=== PATIENT | female | born 1955 | race Two or more races ===

== ENCOUNTER 2021-05-02 07:30 | Inpatient (IN) | payer MEDICAID ==
[2021-04-24 11:11] LABS: BASOPHILS % (AUTO) 0.4 % (0-1); EOSINOPHILS # (AUTO) 0.1 X10'3 (0-0.9); EOSINOPHILS % (AUTO) 3.2 % (0-6); LYMPHOCYTES # (AUTO) 1.1 X10'3 (1.1-4.8); LYMPHOCYTES % (AUTO) 25.3 % (21-51); MEAN CORPUSCULAR HEMOGLOBIN 31.7 PG (27.0-31.0); MEAN CORPUSCULAR HGB CONC 34.3 g/dL (33.0-36.5); MEAN CORPUSCULAR VOLUME 92.5 FL (78-98); MEAN PLATELET VOLUME 7.3 FL (7.4-10.4); MONOCYTES # (AUTO) 0.4 X10'3 (0-0.9); MONOCYTES % (AUTO) 9.8 % (2-12); NEUTROPHILS # (AUTO) 2.7 X10'3 (1.8-7.7); NEUTROPHILS % (AUTO) 61.3 % (42-75); PRE OP HEMATOCRIT 42.2 % (35.0-45.0); PRE OP HEMOGLOBIN 14.5 g/dL (12.0-16.0); PRE OP PLATELET COUNT 218 X10'3 (140-440); RED BLOOD COUNT 4.56 X10'6 (4.20-5.60); RED CELL DISTRIBUTION WIDTH 13.4 % (11.5-14.5)
[2021-04-24 11:47] LABS: ALBUMIN 4.3 G/DL (3.4-5.0); ALBUMIN/GLOBULIN RATIO 1.3 (1.1-1.5); ALKALINE PHOSPHATASE 85 IU/L (46-116); BLOOD UREA NITROGEN 14 MG/DL (7-18); BUN/CREATININE RATIO 24.6 (6.6-38.0); CALCIUM 8.8 MG/DL (8.5-10.1); CHLORIDE 106 MMOL/L (99-107); CREATININE 0.57 MG/DL (0.40-0.90); PRE OP ALT 33 U/L (30-65); PRE OP ANION GAP 10 (8-16); PRE OP AST 15 U/L (10-37); PRE OP BILIRUB, TOTAL 0.3 MG/DL (0.0-1.0); PRE OP GLUCOSE 112 MG/DL (70-104); PRE OP POTASSIUM 3.6 MMOL/L (3.4-5.1); PRE OP SODIUM 144 MMOL/L (135-145); TOTAL CARBON DIOXIDE 27.8 MMOL/L (24-32); TOTAL PROTEIN 7.7 G/DL (6.4-8.2); eGFR > 90 ML/MIN
[~2021-05-02] VITALS: Ht 154.9 cm; Wt 108.0 kg
[~2021-05-02 07:30] MED LIST: AMLO5TAB16 PO; LOVA20TA2 PO; MELO-100 PO; PANT40TA54 PO
[2021-05-11] MEDS ORDERED: LISI1TAB53 PO (11:13)
[2021-05-12] VITALS (23 sets, daily range): BP systolic 110–151; BP diastolic 62–86
[2021-05-12] MEDS ORDERED: vancomycin 1,500 MG in NS 300ml IV soln IV ONE (05:30)
[2021-05-12] MEDS ORDERED: cefazolin/dext.iso 2gm/50ml IV ONE (05:30)
[2021-05-12] MEDS ORDERED: tranexamic acid 650mg tablet PO ONE (05:30)
[2021-05-12] MEDS ORDERED: famotidine 20mg tablet PO ONE (05:30)
[2021-05-12] MEDS ORDERED: DEXTROSE 5% IV ONE (08:35)
[2021-05-12] MEDS ORDERED: VANCOMYCIN IV ONE (08:35)
[2021-05-12] MEDS ORDERED: WATER IV ONE (08:35)
[2021-05-12] MEDS: ringers solution, lacted 1,000 ML IV SCH (08:36)
[2021-05-12] MEDS ORDERED: ketorolac trometh. 30mg/ml inj. ONE (11:46)
[2021-05-12] MEDS ORDERED: ROPIVAcaine 0.5% (5mg/ml) 30ml vial ONE ×2 (11:47→14:08)
[2021-05-12] MEDS ORDERED: morphine 4 MG/ML inj SYRINge IV PRN (12:10)
[2021-05-12] MEDS ORDERED: morphine 2 MG/ML inj. syringe IV PRN (12:10)
[2021-05-12] MEDS ORDERED: ondansetron/PF 4mg/2ml inj IV PRN ×2 (12:10→14:30)
[2021-05-12] MEDS ORDERED: fentaNYL/PF 50MCG/1 ML 2ML syringe ONE (12:10)
[2021-05-12] MEDS ORDERED: ringers solution, lacted 1,000 ML IV SCH (12:10)
[2021-05-12] MEDS ORDERED: MIDAZolam 1mg/ml 10ml vial ONE (12:10)
[2021-05-12] MEDS ORDERED: proCHLORperazine 10 MG/2 ml inj IV PRN (12:10)
[2021-05-12] MEDS ORDERED: meperidine/PF 25mg/ml syringe IV PRN ×3 (12:10)
[2021-05-12] MEDS ORDERED: ROPIVAcaine 0.2% (10 MG/5 ML) BOLUS INJECTION ADDCANAL PRN (13:45)
[2021-05-12] MEDS ORDERED: ROPIVAcaine 0.2%/PF PUMP/bolus 545 ML ADDCANAL SCH (13:45)
[2021-05-12] MEDS ORDERED: BUPIVAcaine/PF 7.5mg/ml (0.75%) 10ml vial ONE (14:08)
[2021-05-12] MEDS ORDERED: dexamethasone sod phosphate 4mg/ml inj. ONE (14:08)
[2021-05-12] MEDS ORDERED: acetaminophen 325mg tablet PO PRN (14:30)
[2021-05-12] MEDS ORDERED: bisacodyl 10mg suppository rectal RC PRN (14:30)
[2021-05-12] MEDS ORDERED: HYDROmorphone 1 mg/ml syringe IV PRN (14:30)
[2021-05-12] MEDS ORDERED: magnesium hydroxide 30ml (MOM) UD suspension PO PRN (14:30)
[2021-05-12] MEDS ORDERED: oxyCODONE IR 5mg (immed. release) tablet PO PRN ×2 (14:30)
[2021-05-12] MEDS ORDERED: HYDROmorphone inj. 0.5 MG/0.5 ML DISP.SYRIN IV PRN (14:30)
[2021-05-12] MEDS ORDERED: diphenhydrAMINE 25mg capsule PO PRN ×2 (14:30)
[2021-05-12] MEDS: potassium cl 20mEq in 1/2 NS 1,000 ML IV SCH (14:30)
--- NOTE | 2021-05-12 14:45 | NUR ---
Received from OR via BED, accompanied by Anesthesiologist and report given by Anesthesiologist. PATIENT WAKING UP, NO S/S OF PAIN, V/S WNL, SCD ON, 20G TO RUE, RIGHT KNEE WRAP CDI WITH COLD PACK AND SCD ON. ON Q AT 2ML/HR, F/C DRAINING CLEARYELLOW URINE
--- NOTE | 2021-05-12 15:45 | NUR ---
PATIENT A&OX4, DENIES PAIN, V/S WNL, SCD ON, 20G TO RUE, RIGHT KNEE WRAP CDI WITH COLD PACK AND SCD ON. ON Q AT 2ML/HR, F/C DRAINING CLEAR YELLOW URINE. TAKEN TO 348A WITH ALL BELONGINGS AND HOOKED UP TO MONITORS IN ROOM AND REPORT GIVEN TO RN WHO HAS TAKEN OVER PATIENT CARE.
[2021-05-12] MEDS: ceFAZolin/D5W- 1GM premix 50 ML IV SCH (16:54)
--- NOTE | 2021-05-12 18:28 | NUR ---
Gave repor to Christina PHELAN.
--- NOTE | 2021-05-12 18:29 | NUR ---
Patient in room [facility] 348. I have received report from ZHANE Betancur and had the opportunity to ask questions and assume patient care.
[2021-05-12] MEDS ORDERED: vancomycin/NS 1 GM ADD-VANTAGE 200 ML IV SCH (20:00)
[2021-05-12] MEDS ORDERED: atorvastatin 10mg tablet PO SCH (21:00)
[2021-05-12] MEDS ORDERED: sennosides 8.6mg tablet PO SCH (21:00)
[2021-05-12] MEDS: acetaminophen 325mg tablet PO SCH (21:43)
[2021-05-13] VITALS: BP_SYST 114; BP_SYST 124; BP_DIAS 65; BP_DIAS 68
[2021-05-13] MEDS: ceFAZolin/D5W- 1GM premix 50 ML IV SCH (00:37)
[2021-05-13] MEDS: potassium cl 20mEq in 1/2 NS 1,000 ML IV SCH ×2 (00:37→06:30)
[2021-05-13] MEDS: acetaminophen 325mg tablet PO SCH ×2 (02:08→07:31)
[2021-05-13 02:14] VITALS: BP 124/65
[2021-05-13 04:00] VITALS: BP 115/61
--- NOTE | 2021-05-13 05:53 | NUR ---
Hernández discontinued, per post up order, pt yet to void.
--- NOTE | 2021-05-13 06:36 | NUR ---
Problems reprioritized. Patient report given, questions answered & plan of care reviewed with ZHANE Reyes.
[2021-05-13 06:45] LABS: BASOPHILS % (AUTO) 0.1 % (0-1); EOSINOPHILS % (AUTO) 0 % (0-6); HEMOGLOBIN 11.8 g/dl (12.0-16.0); LYMPHOCYTES # (AUTO) 0.6 X10'3 (1.1-4.8); LYMPHOCYTES % (AUTO) 8.7 % (21-51); MEAN CORPUSCULAR HEMOGLOBIN 31.2 PG (27.0-31.0); MEAN CORPUSCULAR HGB CONC 33.7 g/dL (33.0-36.5); MEAN CORPUSCULAR VOLUME 92.7 FL (78-98); MEAN PLATELET VOLUME 8.3 FL (7.4-10.4); MONOCYTES # (AUTO) 0.4 X10'3 (0-0.9); MONOCYTES % (AUTO) 5.5 % (2-12); NEUTROPHILS # (AUTO) 6.1 X10'3 (1.8-7.7); NEUTROPHILS % (AUTO) 85.7 % (42-75); PLATELET COUNT 202 X10'3 (140-440); RED BLOOD COUNT 3.77 X10'6 (4.20-5.60); RED CELL DISTRIBUTION WIDTH 13.1 % (11.5-14.5); WHITE BLOOD COUNT 7.1 X10'3 (4.5-11.0)
[2021-05-13 07:12] LABS: ANION GAP 11 (8-16); CHLORIDE 104 MMOL/L (99-107); POTASSIUM 3.6 MMOL/L (3.5-5.1); SODIUM 141 MMOL/L (135-145); TOTAL CARBON DIOXIDE 25.8 MMOL/L (24-32)
[2021-05-13 08:00] VITALS: BP 121/71
[2021-05-13] MEDS ORDERED: pantoprazole 40mg Tablet.DR PO SCH (08:00)
[2021-05-13] MEDS ORDERED: MELOXICAM PO SCH (08:00)
[2021-05-13] MEDS ORDERED: HYDROchlorothiazide 25mg tablet PO SCH (08:00)
[2021-05-13] MEDS ORDERED: lisinopril 20mg tablet PO SCH (08:00)
[2021-05-13] MEDS ORDERED: amLODIPine 5mg tablet PO SCH (08:00)
[2021-05-13] MEDS ORDERED: aspirin 325mg tablet PO SCH (08:30)
[2021-05-13] MEDS: ringers solution, lacted 1,000 ML IV SCH (10:51)
[2021-05-13 12:00] VITALS: BP 113/55
[2021-05-14] MEDS ORDERED: acetaminophen 325mg tablet PO PRN (14:30)
== END 2021-05-13 13:18 | disposition home or self-care (01) | DRG 326 ==
LOC: PAS IN 05-12 07:43 → SUR 3N 05-12 15:50
PROVIDERS: ADMIT Orthopaedic Surgery; ATTEND Orthopaedic Surgery
PROC: 8E0YXBZ Computer Assisted Procedure of Lower Extremity (ICD-10-PCS; 2021-05-12)
PROC: 8E0Y0CZ Robotic Assisted Procedure of Lower Extremity, Open Approach (ICD-10-PCS; 2021-05-12)
PROC: 3E0T3BZ Introduction of Anesthetic Agent into Peripheral Nerves and Plexi, Percutaneous Approach (ICD-10-PCS; 2021-05-12)
PROC: 3E0T33Z Introduction of Anti-inflammatory into Peripheral Nerves and Plexi, Percutaneous Approach (ICD-10-PCS; 2021-05-12)
PROC: 0SRC0J9 Replacement of Right Knee Joint with Synthetic Substitute, Cemented, Open Approach (ICD-10-PCS; principal; 2021-05-12 12:07)
DX: M17.11 Unilateral primary osteoarthritis, right knee (principal); E78.00 Pure hypercholesterolemia, unspecified; I10 Essential (primary) hypertension; G89.4 Chronic pain syndrome; K21.9 Gastro-esophageal reflux disease without esophagitis; Z79.899 Other long term (current) drug therapy
CPT/HCPCS: 36415; 80051; 80053; 82948; 85025; 87081; 97110; 97116; 97162; 97530; A4215; A6449; A7000; C1713; C1758; C1776; G0378; J0690; J1100; J1885; J2250; J2795; J3010; J3370; J3480; J3490; J7060; J7120; U0003; U0005

== ENCOUNTER 2021-12-26 08:03 | Inpatient (IN) | payer MEDICAID ==
[2021-12-20 15:12] LABS: BASOPHILS # (AUTO) 0.1 X10'3 (0-0.2); BASOPHILS % (AUTO) 0.9 % (0-1); EOSINOPHILS # (AUTO) 0.1 X10'3 (0-0.9); EOSINOPHILS % (AUTO) 1.9 % (0-6); LYMPHOCYTES # (AUTO) 1.2 X10'3 (1.1-4.8); LYMPHOCYTES % (AUTO) 18.9 % (21-51); MEAN CORPUSCULAR HGB CONC 34.4 g/dL (33.0-36.5); MEAN CORPUSCULAR VOLUME 90.2 FL (78-98); MEAN PLATELET VOLUME 7.4 FL (7.4-10.4); MONOCYTES # (AUTO) 0.5 X10'3 (0-0.9); MONOCYTES % (AUTO) 7.8 % (2-12); NEUTROPHILS # (AUTO) 4.5 X10'3 (1.8-7.7); NEUTROPHILS % (AUTO) 70.5 % (42-75); PRE OP HEMATOCRIT 40.9 % (35.0-45.0); PRE OP HEMOGLOBIN 14.1 g/dL (12.0-16.0); PRE OP PLATELET COUNT 224 X10'3 (140-440); RED BLOOD COUNT 4.54 X10'6 (4.20-5.60); RED CELL DISTRIBUTION WIDTH 13.6 % (11.5-14.5)
[2021-12-20 15:25] LABS: ALBUMIN 4.2 G/DL (3.4-5.0); ALBUMIN/GLOBULIN RATIO 1.2 (1.1-1.5); ALKALINE PHOSPHATASE 84 IU/L (46-116); BLOOD UREA NITROGEN 15 MG/DL (7-18); BUN/CREATININE RATIO 25.4 (6.6-38.0); CALCIUM 9.3 MG/DL (8.5-10.1); CHLORIDE 99 MMOL/L (99-107); CREATININE 0.59 MG/DL (0.40-0.90); PRE OP ALT 29 U/L (30-65); PRE OP ANION GAP 11 (8-16); PRE OP AST 19 U/L (10-37); PRE OP BILIRUB, TOTAL 0.2 MG/DL (0.0-1.0); PRE OP GLUCOSE 124 MG/DL (70-104); PRE OP SODIUM 137 MMOL/L (135-145); TOTAL CARBON DIOXIDE 27.4 MMOL/L (24-32); TOTAL PROTEIN 7.8 G/DL (6.4-8.2); eGFR > 90 ML/MIN
[2021-12-20 15:27] LABS: PRE OP POTASSIUM 2.9 MMOL/L (3.4-5.1)
[~2021-12-26] VITALS: Ht 157.5 cm; Wt 110.7 kg
[2021-12-26] VITALS (16 sets, daily range): BP systolic 89–155; BP diastolic 52–95
[~2021-12-26 08:03] MED LIST changes: +LISI1TAB53 PO; +ceFAZolin inj. 2,000 MG in dextrose 5%-water 100 ML IV ONE; +famotidine 20mg tablet PO ONE; +ringers solution, lacted 1,000 ML IV SCH; +tranexamic acid 650mg tablet PO ONE; +vancomycin 1,500 MG in NS 300ml IV soln IV ONE
[2021-12-26] MEDS ORDERED: ketorolac trometh. 30mg/ml inj. ONE (09:33)
[2021-12-26] MEDS ORDERED: ROPIVAcaine 0.5% (5mg/ml) 30ml vial ONE ×3 (09:33→10:48)
[2021-12-26 09:35] LABS: ISTAT ANION GAP 11 (8-12); ISTAT BUN 8 mg/dL (7-18); ISTAT CL 98 mmol/L (99-107); ISTAT CREATININE 0.5 mg/dL (0.6-1.1); ISTAT GLUCOSE 119 mg/dL (70-104); ISTAT HGB 13.9 g/dl (12.0-16.0); ISTAT Hct 41 %PCV (35-45); ISTAT IONIZED CALCIUM 1.11 mmol/L (1.03-1.32); ISTAT K 3.9 mmol/L (3.5-5.1); ISTAT NA 138 mmol/L (135-145); ISTAT TOTAL CO2 29 mmol/L (24-32); ISTAT eGFR > 90 ML/MIN
--- NOTE | 2021-12-26 10:10 | NUR ---
PT WAS INSTRUCTED TO WATCH VIDEO AT PREOP BUT DUE TO LANGUAGE BARRIER SHE DID NOT WATCH. SOAP AND OINTMENT USED X 5 DAYS PREOP. BILAT PEDAL PULSES +3 AND MARKED ON PATIENT.
[2021-12-26] MEDS ORDERED: tetracaine 1% (10mg/ml) pres. free inj. ONE (10:43)
[2021-12-26] MEDS ORDERED: fentaNYL/PF 50MCG/1 ML 2ML syringe ONE (10:47)
[2021-12-26] MEDS ORDERED: MIDAZolam 1 MG/ML 5ML VIAL ONE (10:47)
[2021-12-26] MEDS ORDERED: morphine 4 MG/ML inj SYRINge IV PRN (12:15)
[2021-12-26] MEDS ORDERED: meperidine/PF 25mg/ml syringe IV PRN ×3 (12:15)
[2021-12-26] MEDS ORDERED: ringers solution, lacted 1,000 ML IV SCH (12:15)
[2021-12-26] MEDS ORDERED: ondansetron/PF 4mg/2ml inj IV PRN (12:15)
[2021-12-26] MEDS ORDERED: morphine 2 MG/ML inj. syringe IV PRN (12:15)
[2021-12-26] MEDS ORDERED: proCHLORperazine 10 MG/2 ml inj IV PRN (12:15)
[2021-12-26] MEDS ORDERED: propofol inj 20 ML IV ONE ×3 (12:47)
[2021-12-26] MEDS ORDERED: oxyCODONE IR 5mg (immed. release) tablet PO PRN ×2 (13:15)
[2021-12-26] MEDS ORDERED: bisacodyl 10mg suppository rectal RC PRN (13:15)
[2021-12-26] MEDS ORDERED: naloxone 0.4 mg/ml inj IV PRN (13:15)
[2021-12-26] MEDS ORDERED: acetaminophen 325mg tablet PO PRN (13:15)
[2021-12-26] MEDS ORDERED: diphenhydrAMINE 25mg capsule PO PRN ×2 (13:15)
[2021-12-26] MEDS ORDERED: pantoprazole 40mg Tablet.DR PO PRN (13:15)
[2021-12-26] MEDS ORDERED: HYDROmorphone inj. 0.5 MG/0.5 ML DISP.SYRIN IV PRN (13:15)
[2021-12-26] MEDS ORDERED: magnesium hydroxide 30ml (MOM) UD suspension PO PRN (13:15)
[2021-12-26] MEDS ORDERED: HYDROcodone/acetaminophen 10/325mg tab PO PRN (13:15)
[2021-12-26] MEDS ORDERED: HYDROmorphone 1 mg/ml syringe IV PRN (13:15)
--- NOTE | 2021-12-26 13:22 | NUR ---
Received from OR via BED, accompanied by Anesthesiologist and report given by BATSHEVA Anesthesiologist. PATIENT WAKING UP, DENIES PAIN, V/S WNL, SCD ON, 18G TO RIGHT AC, drsg to LEFT KNEE C/D/I with ICE POWDER PACK. CERNA CATHETER DRAINING WITH CLEAR YELLOW URINE. Addendum: 12/26/21 at 1353 by Kyle Salinas RN Amended: Links added. Addendum: 12/26/21 at 1415 by Kyle Salinas RN ALL CARE PLAN WERE TRANSLATED USING [employer] DEVICE. COSTUME DIRECTOR NAME: ADELE, ID: [id number].
[2021-12-26] MEDS: acetaminophen 325mg tablet PO SCH ×2 (14:00→20:00)
--- NOTE | 2021-12-26 14:12 | NUR ---
PATIENT HAS MET ALL CRITERIA FOR TRANSFER TO ORTHO FLOOR. VSS. DRESSINGS INTACT. BED LOW, CALL LIGHT PRESENT AND 2 RAILS UP. RN PRESENT TO ACCEPT CARE OF PATIENT AND REPORT HAS BEEN CALLED. ALL QUESTIONS ANSWERED TO ACCEPTING RN. Addendum: 12/26/21 at 1415 by Kyle Salinas RN Amended: Links added.
[2021-12-26] MEDS: potassium cl 20mEq in 1/2 NS 1,000 ML IV SCH ×2 (18:18→21:15)
[2021-12-26] MEDS: HYDROcodone/acetaminophen 10/325mg tab PO PRN (18:19)
[2021-12-26] MEDS: ceFAZolin/D5W- 1GM premix 50 ML IV SCH ×2 (18:19→23:45)
[2021-12-26] MEDS: amLODIPine 5mg tablet PO SCH (20:00)
[2021-12-26] MEDS ORDERED: vancomycin/NS 1 GM ADD-VANTAGE 250 ML IV SCH (20:00)
[2021-12-26] MEDS: sennosides 8.6mg tablet PO SCH (20:29)
[2021-12-26] MEDS: atorvastatin 10mg tablet PO SCH (20:29)
[2021-12-27 02:00] VITALS: BP 90/50
[2021-12-27] MEDS: potassium cl 20mEq in 1/2 NS 1,000 ML IV SCH ×2 (04:15→13:15)
[2021-12-27] MEDS: HYDROcodone/acetaminophen 10/325mg tab PO PRN (05:47)
[2021-12-27 06:03] LABS: BASOPHILS % (AUTO) 0.4 % (0-1); EOSINOPHILS # (AUTO) 0.2 X10'3 (0-0.9); EOSINOPHILS % (AUTO) 3.1 % (0-6); HEMATOCRIT 32.6 % (35.0-45.0); HEMOGLOBIN 11.2 g/dl (12.0-16.0); LYMPHOCYTES # (AUTO) 0.7 X10'3 (1.1-4.8); LYMPHOCYTES % (AUTO) 14.2 % (21-51); MEAN CORPUSCULAR HEMOGLOBIN 31.6 PG (27.0-31.0); MEAN CORPUSCULAR HGB CONC 34.4 g/dL (33.0-36.5); MEAN CORPUSCULAR VOLUME 91.8 FL (78-98); MEAN PLATELET VOLUME 7.6 FL (7.4-10.4); MONOCYTES # (AUTO) 0.5 X10'3 (0-0.9); MONOCYTES % (AUTO) 9.4 % (2-12); NEUTROPHILS # (AUTO) 3.6 X10'3 (1.8-7.7); NEUTROPHILS % (AUTO) 72.9 % (42-75); PLATELET COUNT 163 X10'3 (140-440); RED BLOOD COUNT 3.54 X10'6 (4.20-5.60); RED CELL DISTRIBUTION WIDTH 13.7 % (11.5-14.5)
[2021-12-27 06:09] LABS: ANION GAP 5 (8-16); CHLORIDE 103 MMOL/L (99-107); POTASSIUM 3.7 MMOL/L (3.5-5.1); SODIUM 137 MMOL/L (135-145); TOTAL CARBON DIOXIDE 29.3 MMOL/L (24-32)
[2021-12-27 06:45] VITALS: BP 113/54
[2021-12-27] MEDS ORDERED: HYDROchlorothiazide 25mg tablet PO SCH (08:00)
[2021-12-27] MEDS ORDERED: lisinopril 20mg tablet PO SCH (08:00)
[2021-12-27] MEDS: aspirin 325mg tablet PO SCH (09:12)
[2021-12-27] MEDS: amLODIPine 5mg tablet PO SCH (09:13)
[2021-12-27] MEDS: MELOXICAM 7.5 MG TABLET PO SCH (09:14)
--- NOTE | 2021-12-27 09:34 | NUR ---
Pt s/p L knee arthroplasty this admit per EMR. Written High protein diet ed w/ RD contact info placed in pt chart. Addendum: 12/27/21 at [address] Amended: Links added.
[2021-12-27 10:00] VITALS: BP 127/59
[2021-12-27] MEDS ORDERED: traMADol 50MG tablet PO ONE (12:15)
[2021-12-27] MEDS: ondansetron/PF 4mg/2ml inj IV PRN ×2 (13:01→19:33)
[2021-12-27 14:00] VITALS: BP 101/64
[2021-12-27] MEDS ORDERED: traMADol 50MG tablet PO PRN ×2 (14:20)
[2021-12-27] MEDS ORDERED: normal saline 1000ml 1,000 ML IV ONE (15:39)
[2021-12-27 18:00] VITALS: BP 127/59
--- NOTE | 2021-12-27 18:50 | NUR ---
Report to Lisa PHELAN
[2021-12-27] MEDS: atorvastatin 10mg tablet PO SCH (19:31)
[2021-12-27] MEDS: celeCOXIB 100mg capsule PO SCH (19:31)
[2021-12-27] MEDS: sennosides 8.6mg tablet PO SCH (19:31)
--- NOTE | 2021-12-27 19:39 | NUR ---
used blue phone to translate about norco and other medications. pt wanted to make sure we knew no more norco and no pork b/c it causes throat swelling and rash. blue phone at bedside.
[2021-12-27 22:00] VITALS: BP 108/66
[2021-12-28 06:00] VITALS: BP 123/62
[2021-12-28 06:11] LABS: BASOPHILS % (AUTO) 0.3 % (0-1); EOSINOPHILS # (AUTO) 0.3 X10'3 (0-0.9); EOSINOPHILS % (AUTO) 4.9 % (0-6); HEMATOCRIT 31.4 % (35.0-45.0); HEMOGLOBIN 11.1 g/dl (12.0-16.0); LYMPHOCYTES # (AUTO) 0.8 X10'3 (1.1-4.8); MEAN CORPUSCULAR HEMOGLOBIN 32.1 PG (27.0-31.0); MEAN CORPUSCULAR HGB CONC 35.2 g/dL (33.0-36.5); MEAN CORPUSCULAR VOLUME 91.2 FL (78-98); MEAN PLATELET VOLUME 7.5 FL (7.4-10.4); MONOCYTES # (AUTO) 0.6 X10'3 (0-0.9); MONOCYTES % (AUTO) 10.1 % (2-12); NEUTROPHILS # (AUTO) 4.4 X10'3 (1.8-7.7); NEUTROPHILS % (AUTO) 71.7 % (42-75); PLATELET COUNT 173 X10'3 (140-440); RED BLOOD COUNT 3.44 X10'6 (4.20-5.60); RED CELL DISTRIBUTION WIDTH 13.5 % (11.5-14.5); WHITE BLOOD COUNT 6.1 X10'3 (4.5-11.0)
--- NOTE | 2021-12-28 06:19 | NUR ---
Patient in room ORTHO 4015. I have received report from ZHANE Goodman and had the opportunity to ask questions and assume patient care.
[2021-12-28] MEDS: celeCOXIB 100mg capsule PO SCH (07:17)
[2021-12-28] MEDS: MELOXICAM 7.5 MG TABLET PO SCH (07:17)
[2021-12-28] MEDS: aspirin 325mg tablet PO SCH (07:18)
[2021-12-28 10:00] VITALS: BP 119/74
[2021-12-28] MEDS ORDERED: acetaminophen 325mg tablet PO PRN (13:15)
--- NOTE | 2021-12-28 13:55 | NUR ---
pt d/c with instructions, understanding of instructions b/c son who speaks iraqi is at bedside to translate, in wheelchair accompanied by family and nursing staff to private vehicle to go home and f/u w/surgeon
== END 2021-12-28 13:43 | disposition home or self-care (01) | DRG 326 ==
LOC: PAS IN 08:03 → ORTHO 4S 14:30
PROVIDERS: ADMIT Orthopaedic Surgery; ATTEND Orthopaedic Surgery
PROC: 3E0T3BZ Introduction of Anesthetic Agent into Peripheral Nerves and Plexi, Percutaneous Approach (ICD-10-PCS; 2021-12-26)
PROC: 3E0T33Z Introduction of Anti-inflammatory into Peripheral Nerves and Plexi, Percutaneous Approach (ICD-10-PCS; 2021-12-26)
PROC: 0SRD0J9 Replacement of Left Knee Joint with Synthetic Substitute, Cemented, Open Approach (ICD-10-PCS; principal; 2021-12-26 10:51)
DX: M17.12 Unilateral primary osteoarthritis, left knee (principal); E66.9 Obesity, unspecified; E78.00 Pure hypercholesterolemia, unspecified; K21.9 Gastro-esophageal reflux disease without esophagitis; I10 Essential (primary) hypertension; R11.0 Nausea; Z68.41 Body mass index [BMI] 40.0-44.9, adult
CPT/HCPCS: 36415; 80047; 80051; 80053; 85025; 87081; 87811; 93005; 97110; 97116; 97161; 97530; A4215; A6258; A7000; C1713; C1758; C1776; G0378; J0690; J1885; J2250; J2405; J2704; J2795; J3010; J3370; J3480; J3490; J7030; J7040; J7060; J7120